=== PATIENT | female | born 1930 | race Caucasian/White ===

== ENCOUNTER 2017-03-30 22:29 | Outpatient (CLI) ==
[2016-10-29 11:09] VITALS: BMI 29.0
== END 2017-03-30 22:30 ==
LOC: AMBL 22:29
PROVIDERS: ATTEND Emergency Medicine
DX: R07.9 Chest pain, unspecified (principal); M54.9 Dorsalgia, unspecified

== ENCOUNTER 2017-12-22 11:17 | Outpatient (CLI) ==
[2016-10-29 11:09] VITALS: BMI 29.0
== END 2017-12-22 11:18 | disposition short-term general hospital (02) ==
LOC: AMBL 11:17
PROVIDERS: ATTEND Internal Medicine
DX: M25.552 Pain in left hip (principal); M79.601 Pain in right arm; W06.XXXA Fall from bed, initial encounter